=== PATIENT | female | born 1975 | race American Indian/Alaskan Native ===

== ENCOUNTER 2016-08-20 09:55 | Inpatient (IN) | payer OTHER ==
[2016-08-20] MEDS ORDERED: TYLENOL PO ONE (10:16)
--- NOTE | 2016-08-20 10:32 | Emergency Department Report ---
ED General Adult HPI - General Chief complaint: Dyspnea/Respdistress Stated complaint: POSS PNEUMONIA Time Seen by Provider: 08/20/16 10:30 Source: patient, EMS Mode of arrival: Stretcher Limitations: No Limitations - History of Present Illness Initial comments: Patient complains of green productive sputum and shortness of breath for the past several days. She has had fever and chills. She does work in healthcare setting. She denies prior history of pneumonia. She states her sugar has been borderline in the past but she is not on medicine for diabetes. She has been prescribed a C Pap at night which she no longer has. She has not been to a physician for some time. -: days(s) Radiation: non-radiation Severity scale (0 -10): 0 Improves with: none Worsens with: none Associated Symptoms: cough, fever/chills - Related Data Previous Rx's Medication Instructions Recorded Last Taken Type Nitrofurantoin [place]/M-Cryst 100 mg PO Q12HR #14 capsule 01/03/16 Unknown Rx [Macrobid CAP] Ondansetron [Zofran Odt] 4 mg PO Q8H PRN #10 tab.rapdis 01/03/16 Unknown Rx Allergies Allergy/AdvReac Type Severity Reaction Status Date / Time No Known Allergies Allergy Unverified 01/03/16 23:49 ED Review of Systems ROS: Stated complaint: POSS PNEUMONIA Other details as noted in HPI Constitutional: chills, fever Eyes: denies: eye pain, eye discharge, vision change ENT: denies: ear pain, throat pain Respiratory: cough, shortness of breath. denies: wheezing Cardiovascular: denies: chest pain, palpitations Endocrine: no symptoms reported Gastrointestinal: diarrhea (some mild but not watery diarrhea.). denies: abdominal pain, nausea Genitourinary: denies: urgency, dysuria, discharge Musculoskeletal: denies: back pain, joint swelling, arthralgia Skin: denies: rash, lesions Neurological: denies: headache, weakness, paresthesias Psychiatric: denies: anxiety, depression Hematological/Lymphatic: denies: easy bleeding, easy bruising ED Past Medical Hx - Past Medical History Previous Medical History?: Yes Hx Asthma: Yes Additional medical history: pneumonia, sleep apnea - Social History Smoking Status: Never Smoker Substance Use Type: None - Medications Home Medications: Home Medications Medication Instructions Recorded Confirmed Last Taken Type Nitrofurantoin [place]/M-Cryst 100 mg PO Q12HR #14 capsule 01/03/16 Unknown Rx [Macrobid CAP] Ondansetron [Zofran Odt] 4 mg PO Q8H PRN #10 tab.rapdis 01/03/16 Unknown Rx ED Physical Exam - General Limitations: No Limitations General appearance: alert, in no apparent distress, obese - Head Head exam: Present: atraumatic, normocephalic - Eye Eye exam: Present: normal appearance, PERRL, EOMI. Absent: scleral icterus - ENT ENT exam: Present: normal exam, normal orophraynx, mucous membranes moist - Neck Neck exam: Present: normal inspection - Respiratory Respiratory exam: Present: decreased breath sounds, other (no respiratory distress). Absent: respiratory distress, accessory muscle use - Cardiovascular Cardiovascular Exam: Present: normal rhythm, tachycardia. Absent: systolic murmur, diastolic murmur, rubs, gallop - GI/Abdominal GI/Abdominal exam: Present: soft, normal bowel sounds. Absent: distended, tenderness, guarding, rebound, rigid - Extremities Exam Extremities exam: Present: normal inspection - Back Exam Back exam: Present: normal inspection - Neurological Exam Neurological exam: Present: alert, oriented X3, CN II-XII intact. Absent: motor sensory deficit - Psychiatric Psychiatric exam: Present: normal affect, normal mood - Skin Skin exam: Present: warm, dry, intact, normal color. Absent: rash ED Course Vital Signs 08/20/16 08/20/16 08/20/16 10:02 10:06 11:00 Temperature 102.7 F H Pulse Rate 114 H 108 H Respiratory 22 20 Rate Blood Pressure 107/58 107/58 107/58 O2 Sat by Pulse 97 97 Oximetry 08/20/16 08/20/16 08/20/16 12:00 12:33 13:00 Temperature Pulse Rate 116 H 97 H Respiratory 19 22 21 Rate Blood Pressure 96/54 80/42 O2 Sat by Pulse 99 97 98 Oximetry - Reevaluation(s) Reevaluation #1: Patient's first antibiotic choice was Levaquin. Added antibiotic coverage per Dr. Lazcano. Patient was admitted to the hospitalist service. 08/20/16 14:10 ED Medical Decision Making - Lab Data Result diagrams: 08/20/16 11:44 08/20/16 11:44 Laboratory Results - last 24 hr 08/20/16 08/20/16 08/20/16 10:37 10:45 11:44 WBC RBC Hgb Hct MCV MCH MCHC RDW Plt Count Lymph % (Auto) [place] % (Auto) Eos % (Auto) Baso % (Auto) Lymph # [place] # Eos # Baso # Seg Neutrophils % Seg Neutrophils # PT 13.1 INR 1.00 APTT 28.0 POC ABG pH POC ABG pCO2 POC ABG pO2 POC ABG HCO3 POC ABG Total CO2 POC ABG O2 Sat POC ABG Base Excess FiO2 Sodium 139 Potassium 4.5 Chloride 99.8 Carbon Dioxide 27 Anion Gap 17 BUN 21 H Creatinine 1.4 H Estimated GFR 50 BUN/Creatinine Ratio 15.00 Glucose 136 H Lactic Acid 1.70 Calcium 8.8 Magnesium Total Bilirubin Direct Bilirubin AST ALT Alkaline Phosphatase Troponin T < 0.010 Total Protein Albumin Albumin/Globulin Ratio Urine Color Urine Turbidity Urine pH Ur Specific [place] Urine Protein Urine Glucose (UA) Urine Ketones Urine Blood Urine Nitrite Urine Bilirubin Urine Urobilinogen Ur Leukocyte Esterase Urine WBC (Auto) Urine RBC (Auto) U Epithel Cells (Auto) 08/20/16 08/20/16 08/20/16 11:44 11:44 11:44 WBC 12.7 H RBC 4.12 Hgb 11.5 Hct 35.6 MCV 86 MCH 28 MCHC 32 RDW 15.9 H Plt Count 231 Lymph % (Auto) 14.8 [place] % (Auto) 5.4 Eos % (Auto) 0.1 Baso % (Auto) 0.4 Lymph # 1.9 [place] # 0.7 Eos # 0.0 Baso # 0.1 Seg Neutrophils % 79.3 H Seg Neutrophils # 10.0 H PT INR APTT POC ABG pH POC ABG pCO2 POC ABG pO2 POC ABG HCO3 POC ABG Total CO2 POC ABG O2 Sat POC ABG Base Excess FiO2 Sodium Potassium Chloride Carbon Dioxide Anion Gap BUN Creatinine Estimated GFR BUN/Creatinine Ratio Glucose Lactic Acid Calcium Magnesium 2.10 Total Bilirubin 0.20 Direct Bilirubin < 0.2 AST 16 ALT 20 Alkaline Phosphatase 56 Troponin T Total Protein 7.4 Albumin 3.6 L Albumin/Globulin Ratio 0.9 Urine Color Urine Turbidity Urine pH Ur Specific [place] Urine Protein Urine Glucose (UA) Urine Ketones Urine Blood Urine Nitrite Urine Bilirubin Urine Urobilinogen Ur Leukocyte Esterase Urine WBC (Auto) Urine RBC (Auto) U Epithel Cells (Auto) 08/20/16 08/20/16 12:33 13:04 WBC RBC Hgb Hct MCV MCH MCHC RDW Plt Count Lymph % (Auto) [place] % (Auto) Eos % (Auto) Baso % (Auto) Lymph # [place] # Eos # Baso # Seg Neutrophils % Seg Neutrophils # PT INR APTT POC ABG pH 7.421 POC ABG pCO2 37.5 POC ABG pO2 95 POC ABG HCO3 24.3 POC ABG Total CO2 25 POC ABG O2 Sat 98 POC ABG Base Excess 0 FiO2 28 Sodium Potassium Chloride Carbon Dioxide Anion Gap BUN Creatinine Estimated GFR BUN/Creatinine Ratio Glucose Lactic Acid Calcium Magnesium Total Bilirubin Direct Bilirubin AST ALT Alkaline Phosphatase Troponin T Total Protein Albumin Albumin/Globulin Ratio Urine Color Yellow Urine Turbidity Clear Urine pH 5.0 Ur Specific [place] 1.016 Urine Protein <15 mg/dl Urine Glucose (UA) Neg Urine Ketones Neg Urine Blood Mod Urine Nitrite Neg Urine Bilirubin Neg Urine Urobilinogen < 2.0 Ur Leukocyte Esterase Neg Urine WBC (Auto) 2.0 Urine RBC (Auto) 3.0 U Epithel Cells (Auto) < 1.0 - EKG Data -: EKG Interpreted by Me EKG shows normal: sinus rhythm, axis (left) Rate: tachycardia - EKG Data Interpretation: no acute changes - Radiology Data interpreted by me: Left lower lobe pneumonia Critical care attestation.: If time is entered above; I have spent that time in minutes in the direct care of this critically ill patient, excluding procedure time. ED Disposition Clinical Impression: Left lower lobe pneumonia Qualifiers: Pneumonia type: due to unspecified organism Qualified Code(s): J18.1 - Lobar pneumonia, unspecified organism Disposition: OP ADMIT IP TO THIS HOSP Is pt being admited?: Yes Does the pt Need Aspirin: Yes Condition: Stable Time of Disposition: 11:30
[2016-08-20] MEDS ORDERED: NACL 0.9% 1000 ML 1,000 ML IV ONE (10:35)
[2016-08-20] MEDS ORDERED: LEVAQUIN 750MG/150ML 750 MG/150 ML BAG IV ONE (10:36)
--- NOTE | 2016-08-20 11:26 | XRay Report ---
AP CHEST: HISTORY: Shortness of breath AP view of the chest demonstrates a normal mediastinal and cardiac contour with clear lungs and normal bony and soft tissue structures. IMPRESSION: Unremarkable AP chest.
[2016-08-20 12:03] LABS: Basophils % (Auto) 0.4 % (0.0-1.8); Eosinophils % (Auto) 0.1 % (0.0-4.3); Hematocrit 35.6 % (30.3-42.9); Hemoglobin 11.5 gm/dl (10.1-14.3); Mean Corpuscular HGB Conc 32 % (30-34); Mean Corpuscular Hemoglobin 28 pg (28-32); Mean Corpuscular Volume 86 fl (79-97); Platelet Count 231 K/mm3 (140-440); Red Blood Count 4.12 M/mm3 (3.65-5.03); Red Cell Distribution Width 15.9 % (13.2-15.2); White Blood Count 12.7 K/mm3 (4.5-11.0)
[2016-08-20 12:17] LABS: Anion Gap 17 mmol/L; Blood Urea Nitrogen 21 mg/dL (7-17); Calcium 8.8 mg/dL (8.4-10.2); Carbon Dioxide 27 mmol/L (22-30); Chloride 99.8 mmol/L (98-107); Glucose 136 mg/dL (65-100); Potassium 4.5 mmol/L (3.6-5.0); Sodium 139 mmol/L (137-145)
[2016-08-20] MEDS ORDERED: VANCOMYCIN VIAL IV ONE (12:23)
[2016-08-20] MEDS ORDERED: NACL 0.9% 1000 ML IV ONE ×3 (12:23→19:00)
[2016-08-20 12:31] LABS: Alanine Aminotransferase 20 units/L (7-56); Albumin 3.6 g/dL (3.9-5); Albumin/Globulin Ratio 0.9 %; Alkaline Phosphatase 56 units/L (35-129); Total Protein 7.4 g/dL (6.3-8.2)
[2016-08-20 12:33] LABS: Bilirubin,Direct < 0.2 mg/dL (0-0.2)
--- NOTE | 2016-08-20 12:36 | History and Physical Report ---
History of Present Illness Chief complaint: I feel sick, and Im short of breath History of present illness: 41 YO Female with Obesity, GLORIA, Asthma, presents to ED for evaluation. Pt states that she has been experiencing a productive cough productive of green sputum and shortness of breath for the past 5 days, with worsening symptoms over the past 1 day. Pt acknowledges subjective fever and chills. Pt denies CP , Palpitations, NVD, Syncope, BRBPR, Hemoptysis, Unintentional weight loss, Night sweats, Leg swelling, Calf pain, prolonged travel/immobility, individual/ family history of DVT/PE, or recent ill contacts. Past History Past Medical History: other (GLORIA, Asthma, Obesity) Past Surgical History: No surgical history, Other (reviewed) Social history: single. denies: smoking, alcohol abuse, prescription drug abuse Family history: hypertension Medications and Allergies Allergies Allergy/AdvReac Type Severity Reaction Status Date / Time No Known Allergies Allergy Unverified 01/03/16 23:49 Home Medications Medication Instructions Recorded Confirmed Last Taken Type No Known Home Medications [No 08/20/16 08/20/16 Unknown History Reported Home Medications] Active Meds: Active Medications Azithromycin 500 mg/ Sodium (Chloride) 250 mls @ 250 mls/hr IV Q24HR JESSICA PRN Reason: Protocol Ceftriaxone Sodium (Rocephin/Ns 1 Gm/50 Ml) 1 gm in 50 mls @ 100 mls/hr IV Q24HR JESSICA PRN Reason: Protocol Vancomycin HCl (Vancomycin Pharmacy To Dose) 1 each IV PKCONSULT JESSICA PRN Reason: Protocol Vancomycin HCl (Vancomycin Vial) 1,750 mg 20 mg/kg (1750 mg) IV ONCE ONE PRN Reason: Protocol Stop: 08/20/16 12:24 Review of Systems All systems: negative Constitutional: fever, fatigue, weakness Respiratory: cough with sputum Exam - Constitutional Vitals: Temp Pulse Resp BP Pulse Ox 102.7 F H 116 H 22 96/54 97 08/20/16 10:06 08/20/16 12:00 08/20/16 12:33 08/20/16 12:00 08/20/16 12:33 General appearance: Present: mild distress - EENT Eyes: Present: PERRL ENT: hearing intact, clear oral mucosa - Neck Neck: Present: supple, normal ROM - Respiratory Respiratory effort: normal Respiratory: bilateral: diminished - Cardiovascular Heart Sounds: Present: S1 & S2. Absent: rub, click - Extremities Extremities: pulses symmetrical, No edema Peripheral Pulses: within normal limits - Abdominal General gastrointestinal: Present: soft, non-tender, non-distended, normal bowel sounds Female genitourinary: Present: normal - Integumentary Integumentary: Present: clear, warm, dry - Musculoskeletal Musculoskeletal: generalized weakness - Psychiatric Psychiatric: appropriate mood/affect, intact judgment & insight - Neurologic Neurologic: CNII-XII intact, moves all extremities Results - Labs CBC & Chem 7: 08/20/16 11:44 08/20/16 11:44 Labs: Abnormal lab results 08/20/16 08/20/16 08/20/16 Range/Units 11:44 11:44 11:44 WBC 12.7 H (4.5-11.0) K/mm3 RDW 15.9 H (13.2-15.2) % Seg Neutrophils % 79.3 H (40.0-70.0) % Seg Neutrophils # 10.0 H (1.8-7.7) K/mm3 BUN 21 H (7-17) mg/dL Creatinine 1.4 H (0.7-1.2) mg/dL Glucose 136 H (65-100) mg/dL Albumin 3.6 L (3.9-5) g/dL Assessment and Plan - Patient Problems (1) Sepsis Current Visit: Yes Status: Acute Qualifiers: Sepsis type: S Plan to address problem: IV abx, ivf, supportive care, monitor uop q shift, treat pneumonia, serial lactate level, blood cultures, (2) ARF (acute renal failure) Current Visit: Yes Status: Acute Qualifiers: Acute renal failure type: A Plan to address problem: IVF replacement, monitor uop q shift (3) GLORIA (obstructive sleep apnea) Current Visit: Yes Status: Acute Plan to address problem: CPAP at night, (4) Left lower lobe pneumonia Current Visit: Yes Status: Acute Qualifiers: Pneumonia type: due to unspecified organism Aspiration pneumonia type: A Qualified Code(s): J18.1 - Lobar pneumonia, unspecified organism Plan to address problem: Pneumonia protocol: IV abx, ivf supportive care. (5) DVT prophylaxis Current Visit: Yes Status: Acute
--- NOTE | 2016-08-20 12:37 | Admit Criteria Form ---
Admission Criteria Documentation: FEBRILE ILLNESS, WITHOUT FOCAL INFECTION Clinical Indications for Admission to Inpatient Care (Place 'X' for any and all applicable criteria): Admission is indicated for ANY ONE of the following (1)(2)(3): [ ] I. Bacteremia [ ]II. Suspected or identified specific infection requiring hospitalization (eg, meningitis, endocarditis) [ ]III. Hemodynamic instability [ ]IV. Altered mental status [ ]V. Failure or unavailability of outpatient antimicrobial treatment [ ]. Hypoxemia [ ]VII. Seizures [ ]VIII. High-risk febrile neutropenia [ ]IX. Need for parenteral antibiotic in patient who is likely to abuse vascular access device (eg, injection drug user) [A](7) [ ]X. Temperature greater than 104.9 degrees F (40.5 degrees C) (oral) [X ]XI. Inpatient admission required rather than observation care because of ANY ONE of the following: [ X]a) Specific infection identified that is too severe for outpatient treatment or observation care trial [ ]b) Metabolic disorder (eg, hypoglycemia, hyperglycemia, metabolic acidosis) that is severe or persistent [ ]c) Temperature greater than 103.1 degrees F (39.5 degrees C) ( oral) that is not responsive to observation care treatment [ ]d) IV fluid to replace significant ongoing (eg, for over 24 hours) losses (> 3 L/m2 per day) [ ]e) Supplemental oxygen or respiratory treatments for over 24 hours that is performable only in acute inpatient setting [ ]f) Parenteral nutrition regimen need that must be implemented on inpatient basis [ ]g) Strict or protective (eg, laminar flow) isolation [ ]h) Other condition, treatment or monitoring requiring inpatient admission Extended stay beyond goal length of stay may be needed for(1)(3) [ ]a) Sepsis or septic shock(22) [ ]b) Positive blood cultures [ ]c) Insufficient oral intake [ ]d) High-risk febrile neutropenia(29)(30) [ ]e) Continued fever and clinical instability [ ]f) Clinically active comorbid illness (e.g,heart failure, renal failure , diabetes) The original [facility] content created by [facility] has been revised. The portions of the content which have been revised are identified through the use of italic text or in bold, and [facility] [employer] has neither reviewed nor approved the modified material. All other unmodified content is copyright [facility]. Please see references footnoted in the original [facility] edition 2016 Admission Criteria Met: Yes
[2016-08-20] MEDS ORDERED: VANCOMYCIN PHARMACY TO DOSE IV SCH (13:00)
[2016-08-20 13:13] LABS: ISTAT Base Excess 0; ISTAT HCO3 24.3; ISTAT PCO2 37.5 (35-45); ISTAT PH 7.421 (7.35-7.45); ISTAT PO2 95 (80-105); ISTAT SO2 98; ISTAT TCO2 25
[2016-08-20] MEDS: VANCOMYCIN 1,750 MG in NACL 0.9% 500 ML 500 ML IV SCH (13:44)
[2016-08-20 13:56] LABS: Bilirubin,Urine NEG (Negative); Blood,Urine MOD (Negative); Ketones,Urine NEG (Negative); Leukocyte Esterase,Urine NEG (Negative); Nitrite,Urine NEG (Negative); Protein,Urine <15 mg/dL mg/dL (Negative); Urobilinogen,Urine < 2.0 mg/dL (<2.0)
[2016-08-20] MEDS: PERCOCET 5/325 PO PRN (15:00)
[2016-08-20] MEDS ORDERED: PERCOCET 5/325 ONE (15:41)
[2016-08-20] MEDS: ZITHROMAX 500 MG in NACL 0.9% 250ML 250 ML IV SCH (16:00)
[2016-08-20] MEDS: BABY ASPIRIN PO SCH (17:00)
[2016-08-21 05:19] LABS: Basophils % (Auto) 0.2 % (0.0-1.8); Eosinophils % (Auto) 1.1 % (0.0-4.3); Hematocrit 33.3 % (30.3-42.9); Hemoglobin 10.5 gm/dl (10.1-14.3); Mean Corpuscular HGB Conc 31 % (30-34); Mean Corpuscular Hemoglobin 28 pg (28-32); Mean Corpuscular Volume 88 fl (79-97); Platelet Count 212 K/mm3 (140-440); Red Cell Distribution Width 16.2 % (13.2-15.2); White Blood Count 14.1 K/mm3 (4.5-11.0)
[2016-08-21] MEDS: PERCOCET 5/325 PO PRN ×2 (06:26→12:11)
--- NOTE | 2016-08-21 09:31 | Progress Note ---
Hospitalist Physical - Constitutional Vitals: Temp Pulse Resp BP Pulse Ox 99.2 F 84 18 133/79 95 08/21/16 07:00 08/21/16 07:00 08/21/16 07:00 08/21/16 07:00 08/21/16 07:00 General appearance: Present: mild distress Results - Labs CBC & Chem 7: 08/21/16 04:29 08/20/16 11:44 Labs: Laboratory Last Values WBC 14.1 K/mm3 (4.5-11.0) H 08/21/16 04:29 RBC 3.80 M/mm3 (3.65-5.03) 08/21/16 04:29 Hgb 10.5 gm/dl (10.1-14.3) 08/21/16 04:29 Hct 33.3 % (30.3-42.9) 08/21/16 04:29 MCV 88 fl (79-97) 08/21/16 04:29 MCH 28 pg (28-32) 08/21/16 04:29 MCHC 31 % (30-34) 08/21/16 04:29 RDW 16.2 % (13.2-15.2) H 08/21/16 04:29 Plt Count 212 K/mm3 (140-440) 08/21/16 04:29 Lymph % (Auto) 17.5 % (13.4-35.0) 08/21/16 04:29 [place] % (Auto) 7.1 % (0.0-7.3) 08/21/16 04:29 Eos % (Auto) 1.1 % (0.0-4.3) 08/21/16 04:29 Baso % (Auto) 0.2 % (0.0-1.8) 08/21/16 04:29 Lymph # 2.5 K/mm3 (1.2-5.4) 08/21/16 04:29 [place] # 1.0 K/mm3 (0.0-0.8) H 08/21/16 04:29 Eos # 0.2 K/mm3 (0.0-0.4) 08/21/16 04:29 Baso # 0.0 K/mm3 (0.0-0.1) 08/21/16 04:29 Seg Neutrophils % 74.1 % (40.0-70.0) H 08/21/16 04:29 Seg Neutrophils # 10.5 K/mm3 (1.8-7.7) H 08/21/16 04:29 PT 13.1 Sec. (12.2-14.9) 08/20/16 10:37 INR 1.00 (0.87-1.13) 08/20/16 10:37 APTT 28.0 Sec. (24.2-36.6) 08/20/16 10:37 POC ABG pH 7.421 (7.35-7.45) 08/20/16 13:04 POC ABG pCO2 37.5 (35-45) 08/20/16 13:04 POC ABG pO2 95 (80-105) 08/20/16 13:04 POC ABG HCO3 24.3 08/20/16 13:04 POC ABG Total CO2 25 08/20/16 13:04 POC ABG O2 Sat 98 08/20/16 13:04 POC ABG Base Excess 0 08/20/16 13:04 FiO2 28 % 08/20/16 13:04 Sodium 139 mmol/L (137-145) 08/20/16 11:44 Potassium 4.5 mmol/L (3.6-5.0) 08/20/16 11:44 Chloride 99.8 mmol/L (98-107) 08/20/16 11:44 Carbon Dioxide 27 mmol/L (22-30) 08/20/16 11:44 Anion Gap 17 mmol/L 08/20/16 11:44 BUN 21 mg/dL (7-17) H 08/20/16 11:44 Creatinine 1.4 mg/dL (0.7-1.2) H 08/20/16 11:44 Estimated GFR 50 ml/min 08/20/16 11:44 BUN/Creatinine Ratio 15.00 % 08/20/16 11:44 Glucose 136 mg/dL (65-100) H 08/20/16 11:44 Lactic Acid 1.70 mmol/L (0.7-2.0) 08/20/16 10:45 Calcium 8.8 mg/dL (8.4-10.2) 08/20/16 11:44 Magnesium 2.10 mg/dL (1.7-2.3) 08/20/16 11:44 Total Bilirubin 0.20 mg/dL (0.1-1.2) 08/20/16 11:44 Direct Bilirubin < 0.2 mg/dL (0-0.2) 08/20/16 11:44 AST 16 units/L (5-40) 08/20/16 11:44 ALT 20 units/L (7-56) 08/20/16 11:44 Alkaline Phosphatase 56 units/L (35-129) 08/20/16 11:44 Troponin T < 0.010 ng/mL (0.00-0.029) 08/20/16 11:44 Total Protein 7.4 g/dL (6.3-8.2) 08/20/16 11:44 Albumin 3.6 g/dL (3.9-5) L 08/20/16 11:44 Albumin/Globulin Ratio 0.9 % 08/20/16 11:44 Urine Color Yellow (Yellow) 08/20/16 12:33 Urine Turbidity Clear (Clear) 08/20/16 12:33 Urine pH 5.0 (5.0-7.0) 08/20/16 12:33 Ur Specific [place] 1.016 (1.003-1.030) 08/20/16 12:33 Urine Protein <15 mg/dl mg/dL (Negative) 08/20/16 12:33 Urine Glucose (UA) Neg mg/dL (Negative) 08/20/16 12:33 Urine Ketones Neg mg/dL (Negative) 08/20/16 12:33 Urine Blood Mod (Negative) 08/20/16 12:33 Urine Nitrite Neg (Negative) 08/20/16 12:33 Urine Bilirubin Neg (Negative) 08/20/16 12:33 Urine Urobilinogen < 2.0 mg/dL (<2.0) 08/20/16 12:33 Ur Leukocyte Esterase Neg (Negative) 08/20/16 12:33 Urine WBC (Auto) 2.0 /HPF (0.0-6.0) 08/20/16 12:33 Urine RBC (Auto) 3.0 /HPF (0.0-6.0) 08/20/16 12:33 U Epithel Cells (Auto) < 1.0 /HPF (0-13.0) 08/20/16 12:33 Blood Type AB POSITIVE 08/20/16 16:18 Antibody Screen TNR 08/20/16 16:18 BAKARI Antibody Screen Negative 08/20/16 16:18
[2016-08-21] MEDS: ROCEPHIN/NS 1 GM/50 ML 1 GM/50 ML BAG IV SCH (09:55)
[2016-08-21] MEDS: BABY ASPIRIN PO SCH (09:55)
[2016-08-21] MEDS: VANCOMYCIN 1,750 MG in NACL 0.9% 500 ML 500 ML IV SCH (14:00)
[2016-08-21] MEDS: ZITHROMAX 500 MG in NACL 0.9% 250ML 250 ML IV SCH (14:40)
[2016-08-21] MEDS: TYLENOL PO PRN (22:01)
[2016-08-21] MEDS ORDERED: NACL ONE (22:28)
--- NOTE | 2016-08-21 23:11 | Cat Scan Report ---
FINAL REPORT PROCEDURE: CT CHEST WO CON TECHNIQUE: Computerized axial tomography of the chest was performed without contrast material. This study is performed without intravenous contrast and the sensitivity for pathology, including neoplasms, adenopathy, abscess, pulmonary embolism and aortic dissection, is reduced. HISTORY: bloody sputum COMPARISON: No prior studies are available for comparison. TECHNICAL QUALITY: Satisfactory. FINDINGS: There are bilateral alveolar and ground-glass opacities in a perihilar distribution. Lung apices appear to be spared. No pleural effusion or pneumothorax is seen. The heart is normal in size. Thoracic aorta is normal in size. Small likely reactive mediastinal lymph nodes are seen. There is 1.2 cm cyst or nodule in the left lobe of the thyroid gland. Correlation with thyroid ultrasound is recommended. IMPRESSION: Perihilar infiltrates are seen and are suspicious for atypical pneumonia. 1.2 cm cyst or nodule in the left lobe of the thyroid gland should be evaluated with ultrasound.
[2016-08-22 07:36] LABS: Hematocrit 33.8 % (30.3-42.9); Hemoglobin 10.8 gm/dl (10.1-14.3)
[2016-08-22] MEDS: ROCEPHIN/NS 1 GM/50 ML 1 GM/50 ML BAG IV SCH (10:00)
[2016-08-22] MEDS: BABY ASPIRIN PO SCH (10:05)
--- NOTE | 2016-08-22 10:26 | Progress Note ---
Assessment and Plan Assessment and plan: --Bilateral atypical pneumonia with hemoptysis Follow cultures, continue IV antibiotics, oxygen, nebulizers as needed Patient had CT chest without contrast ,Pulmonary consultation --Acute renal failure; secondary to vasomotor nephropathy Resolved, closely monitor renal function --Sepsis secondary to pneumonia Continue IV antibiotics and follow cultures --Leukocytosis; secondary to pneumonia Trending down --Mild elevation of d-dimer's, in the setting of shortness of breath blood stained sputum Need to rule out PE, CT chest with contrast ,we'll check lower extremity venous Doppler, BNP and possible echocardiogram to rule out congestive heart failure --Morbid obesity; Counseling done, diet modification exercise as tolerated and weight reduction when medically stable, patient may benefit outpatient evaluation by bariatric surgical team for weight reduction program when medically stable --Possible obstructive sleep apnea; CPAP at night May need outpatient sleep studies --DVT prophylaxis with Lovenox Closely monitor the patient and adjust the management as needed History Interval history: Patient Seen and evaluated this morning medical records reviewed Patient complaints cough with bloody sputum Spiked fever of 102 this morning Alert awake oriented 3 not in acute distress Hospitalist Physical - Constitutional Vitals: Temp Pulse Resp BP Pulse Ox 98.8 F 86 22 110/60 100 08/22/16 10:13 08/22/16 10:13 08/22/16 10:13 08/22/16 10:13 08/22/16 10:13 General appearance: Present: no acute distress, well-nourished, obese (morbidly obese) - EENT Eyes: Present: PERRL, EOM intact - Neck Neck: Present: supple, normal ROM - Respiratory Respiratory effort: normal Respiratory: bilateral: diminished, rhonchi (occasional bilateral rhonchi), negative: rales, wheezing - Cardiovascular Rhythm: regular Heart Sounds: Present: S1 & S2 - Extremities Extremities: no ischemia, pulses intact, pulses symmetrical - Abdominal General gastrointestinal: soft, non-tender, non-distended, normal bowel sounds - Integumentary Integumentary: Present: clear, warm - Psychiatric Psychiatric: appropriate mood/affect, cooperative - Neurologic Neurologic: CNII-XII intact, moves all extremities Results - Labs CBC & Chem 7: 08/22/16 14:12 08/22/16 12:57 Labs: Laboratory Last Values WBC 14.1 K/mm3 (4.5-11.0) H 08/21/16 04:29 RBC 3.80 M/mm3 (3.65-5.03) 08/21/16 04:29 Hgb 10.8 gm/dl (10.1-14.3) 08/22/16 07:24 Hct 33.8 % (30.3-42.9) 08/22/16 07:24 MCV 88 fl (79-97) 08/21/16 04:29 MCH 28 pg (28-32) 08/21/16 04:29 MCHC 31 % (30-34) 08/21/16 04:29 RDW 16.2 % (13.2-15.2) H 08/21/16 04:29 Plt Count 212 K/mm3 (140-440) 08/21/16 04:29 Lymph % (Auto) 17.5 % (13.4-35.0) 08/21/16 04:29 Long % (Auto) 7.1 % (0.0-7.3) 08/21/16 04:29 Eos % (Auto) 1.1 % (0.0-4.3) 08/21/16 04:29 Baso % (Auto) 0.2 % (0.0-1.8) 08/21/16 04:29 Lymph # 2.5 K/mm3 (1.2-5.4) 08/21/16 04:29 Long # 1.0 K/mm3 (0.0-0.8) H 08/21/16 04:29 Eos # 0.2 K/mm3 (0.0-0.4) 08/21/16 04:29 Baso # 0.0 K/mm3 (0.0-0.1) 08/21/16 04:29 Seg Neutrophils % 74.1 % (40.0-70.0) H 08/21/16 04:29 Seg Neutrophils # 10.5 K/mm3 (1.8-7.7) H 08/21/16 04:29 PT 13.1 Sec. (12.2-14.9) 08/20/16 10:37 INR 1.00 (0.87-1.13) 08/20/16 10:37 APTT 28.0 Sec. (24.2-36.6) 08/20/16 10:37 POC ABG pH 7.421 (7.35-7.45) 08/20/16 13:04 POC ABG pCO2 37.5 (35-45) 08/20/16 13:04 POC ABG pO2 95 (80-105) 08/20/16 13:04 POC ABG HCO3 24.3 08/20/16 13:04 POC ABG Total CO2 25 08/20/16 13:04 POC ABG O2 Sat 98 08/20/16 13:04 POC ABG Base Excess 0 08/20/16 13:04 FiO2 28 % 08/20/16 13:04 Sodium 139 mmol/L (137-145) 08/20/16 11:44 Potassium 4.5 mmol/L (3.6-5.0) 08/20/16 11:44 Chloride 99.8 mmol/L (98-107) 08/20/16 11:44 Carbon Dioxide 27 mmol/L (22-30) 08/20/16 11:44 Anion Gap 17 mmol/L 08/20/16 11:44 BUN 21 mg/dL (7-17) H 08/20/16 11:44 Creatinine 1.4 mg/dL (0.7-1.2) H 08/20/16 11:44 Estimated GFR 50 ml/min 08/20/16 11:44 BUN/Creatinine Ratio 15.00 % 08/20/16 11:44 Glucose 136 mg/dL (65-100) H 08/20/16 11:44 Lactic Acid 1.70 mmol/L (0.7-2.0) 08/20/16 10:45 Calcium 8.8 mg/dL (8.4-10.2) 08/20/16 11:44 Magnesium 2.10 mg/dL (1.7-2.3) 08/20/16 11:44 Total Bilirubin 0.20 mg/dL (0.1-1.2) 08/20/16 11:44 Direct Bilirubin < 0.2 mg/dL (0-0.2) 08/20/16 11:44 AST 16 units/L (5-40) 08/20/16 11:44 ALT 20 units/L (7-56) 08/20/16 11:44 Alkaline Phosphatase 56 units/L (35-129) 08/20/16 11:44 Troponin T < 0.010 ng/mL (0.00-0.029) 08/20/16 11:44 Total Protein 7.4 g/dL (6.3-8.2) 08/20/16 11:44 Albumin 3.6 g/dL (3.9-5) L 08/20/16 11:44 Albumin/Globulin Ratio 0.9 % 08/20/16 11:44 Urine Color Yellow (Yellow) 08/20/16 12:33 Urine Turbidity Clear (Clear) 08/20/16 12:33 Urine pH 5.0 (5.0-7.0) 08/20/16 12:33 Ur Specific [place] 1.016 (1.003-1.030) 08/20/16 12:33 Urine Protein <15 mg/dl mg/dL (Negative) 08/20/16 12:33 Urine Glucose (UA) Neg mg/dL (Negative) 08/20/16 12:33 Urine Ketones Neg mg/dL (Negative) 08/20/16 12:33 Urine Blood Mod (Negative) 08/20/16 12:33 Urine Nitrite Neg (Negative) 08/20/16 12:33 Urine Bilirubin Neg (Negative) 08/20/16 12:33 Urine Urobilinogen < 2.0 mg/dL (<2.0) 08/20/16 12:33 Ur Leukocyte Esterase Neg (Negative) 08/20/16 12:33 Urine WBC (Auto) 2.0 /HPF (0.0-6.0) 08/20/16 12:33 Urine RBC (Auto) 3.0 /HPF (0.0-6.0) 08/20/16 12:33 U Epithel Cells (Auto) < 1.0 /HPF (0-13.0) 08/20/16 12:33 Blood Type AB POSITIVE 08/20/16 16:18 Antibody Screen TNR 08/20/16 16:18 BAKARI Antibody Screen Negative 08/20/16 16:18
[2016-08-22] MEDS: VANCOMYCIN 1,750 MG in NACL 0.9% 500 ML 500 ML IV SCH (13:19)
[2016-08-22 13:41] LABS: Anion Gap 12 mmol/L; Blood Urea Nitrogen 9 mg/dL (7-17); Calcium 8.9 mg/dL (8.4-10.2); Carbon Dioxide 31 mmol/L (22-30); Chloride 92.1 mmol/L (98-107); Glucose 158 mg/dL (65-100); Potassium 3.7 mmol/L (3.6-5.0); Sodium 131 mmol/L (137-145)
[2016-08-22] MEDS: ZITHROMAX 500 MG in NACL 0.9% 250ML 250 ML IV SCH (14:00)
[2016-08-22] MEDS ORDERED: LASIX IV ONE ×2 (14:17→18:00)
[2016-08-22 14:40] LABS: Hemoglobin 10.4 gm/dl (10.1-14.3)
[2016-08-22] MEDS ORDERED: LOVENOX SUB-Q ONE (15:45)
--- NOTE | 2016-08-22 16:29 | Event Note ---
Date: 08/22/16 Patient in shower. Ordered Stat BNP, Coags and dopplers are pending. Will follow up for full consul.
[2016-08-22 17:28] LABS: INR 0.93 (0.87-1.13)
[2016-08-22 17:29] LABS: Partial Thromboplastin Time 30.3 Sec. (24.2-36.6)
[2016-08-22] MEDS: PERCOCET 5/325 PO PRN (17:44)
[2016-08-22] MEDS ORDERED: NACL ONE (19:31)
--- NOTE | 2016-08-22 22:57 | Cat Scan Report ---
FINAL REPORT PROCEDURE: CT ANGIO CHEST TECHNIQUE: Computerized tomographic angiography of the chest was performed after the IV injection of iodinated nonionic contrast including image processing. The image data was postprocessed using 2-dimensional multiplanar reformatted (MPR) and 3-dimensional (MIP and/or volume rendered) techniques. HISTORY: hemoptysis/elevated d dimers COMPARISON: Chest CT dated August 21, 2016 FINDINGS: Persistent ground-glass and alveolar perihilar densities are seen with mild improvement since prior exam. Findings suggest atypical pneumonia. No pneumothorax or pleural effusion is seen. Heart and thoracic aorta are normal in size. There is no evidence of aortic dissection. Small likely reactive mediastinal lymph nodes are seen. 1.5 cm left adrenal nodule or cyst should be evaluated with ultrasound. Unfortunately, timing of contrast bolus in the pulmonary arteries is suboptimal. Distal pulmonary artery branches are not well evaluated. No large proximal pulmonary embolus is seen. IMPRESSION: There are improving perihilar infiltrates likely due to atypical pneumonia. Exam is very limited for evaluation for pulmonary emboli due to timing of contrast bolus being suboptimal in the pulmonary arteries. No large proximal pulmonary embolus is identified.
[2016-08-22] MEDS: LOVENOX SUB-Q SCH (23:08)
[2016-08-22 23:12] LABS: Hematocrit 34.6 % (30.3-42.9)
[2016-08-23 07:19] LABS: Hematocrit 35.2 % (30.3-42.9); Hemoglobin 11.4 gm/dl (10.1-14.3)
--- NOTE | 2016-08-23 09:13 | Progress Note ---
Assessment and Plan Assessment and plan: --Bilateral atypical pneumonia with hemoptysis Symptoms significantly improved , cultures negative to date, continue IV antibiotics, oxygen, nebulizers as needed Oxygen titrate O2 sats to more than 90% ,Pulmonary evaluation noted and appreciated --Acute renal failure; secondary to vasomotor nephropathy, resolved --Sepsis secondary to pneumonia ,Continue IV antibiotics negative cultures so far --Leukocytosis; secondary to pneumonia,Trending down --Mild elevation of d-dimer's, CT chest negative for PE, lower extremity venous Doppler negative for DVT --Morbid obesity;, Counseling done, diet modification exercise as tolerated and weight reduction when medically stable, patient may benefit outpatient evaluation by bariatric surgical team for weight reduction program when medically stable --Possible obstructive sleep apnea; CPAP at night, May need outpatient sleep studies --DVT prophylaxis with Lovenox Possible discharge in 1-2 days if stable, Consults and recommendations noted Plan of care discussed with the patient, sister at the bedside and her nurse History Interval history: Sincerely and evaluated this morning medical records reviewed No new events reported by nursing staff, patient seems slightly better, denies hemoptysis/blood-tinged sputum Complaints of mild shortness of breath CT angiogram, negative for PE, mild improvement in infiltrates Hospitalist Physical - Constitutional Vitals: Temp Pulse Resp BP Pulse Ox 98.1 F 91 H 22 116/76 99 08/23/16 08:00 08/23/16 08:00 08/23/16 08:00 08/23/16 08:00 08/23/16 08:58 General appearance: Present: no acute distress, well-nourished, obese (morbidly obese) - EENT Eyes: Present: PERRL, EOM intact - Neck Neck: Present: supple, normal ROM - Respiratory Respiratory effort: normal Respiratory: bilateral: diminished, rhonchi (occasional), negative: rales, wheezing - Cardiovascular Rhythm: regular Heart Sounds: Present: S1 & S2 - Extremities Extremities: no ischemia, pulses intact, No edema - Abdominal General gastrointestinal: soft, non-tender, non-distended, normal bowel sounds - Integumentary Integumentary: Present: clear, warm - Psychiatric Psychiatric: appropriate mood/affect, cooperative - Neurologic Neurologic: CNII-XII intact, moves all extremities Results - Labs CBC & Chem 7: 08/23/16 06:58 08/22/16 12:57 Labs: Laboratory Last Values WBC 14.1 K/mm3 (4.5-11.0) H 08/21/16 04:29 RBC 3.80 M/mm3 (3.65-5.03) 08/21/16 04:29 Hgb 11.4 gm/dl (10.1-14.3) 08/23/16 06:58 Hct 35.2 % (30.3-42.9) 08/23/16 06:58 MCV 88 fl (79-97) 08/21/16 04:29 MCH 28 pg (28-32) 08/21/16 04:29 MCHC 31 % (30-34) 08/21/16 04:29 RDW 16.2 % (13.2-15.2) H 08/21/16 04:29 Plt Count 212 K/mm3 (140-440) 08/21/16 04:29 Lymph % (Auto) 17.5 % (13.4-35.0) 08/21/16 04:29 [place] % (Auto) 7.1 % (0.0-7.3) 08/21/16 04:29 Eos % (Auto) 1.1 % (0.0-4.3) 08/21/16 04:29 Baso % (Auto) 0.2 % (0.0-1.8) 08/21/16 04:29 Lymph # 2.5 K/mm3 (1.2-5.4) 08/21/16 04:29 [place] # 1.0 K/mm3 (0.0-0.8) H 08/21/16 04:29 Eos # 0.2 K/mm3 (0.0-0.4) 08/21/16 04:29 Baso # 0.0 K/mm3 (0.0-0.1) 08/21/16 04:29 Seg Neutrophils % 74.1 % (40.0-70.0) H 08/21/16 04:29 Seg Neutrophils # 10.5 K/mm3 (1.8-7.7) H 08/21/16 04:29 PT 12.9 Sec. (12.2-14.9) 08/22/16 16:43 INR 0.93 (0.87-1.13) 08/22/16 16:43 APTT 30.3 Sec. (24.2-36.6) 08/22/16 16:43 D-Dimer 329.71 ng/mlDDU (0-234) H 08/22/16 12:57 POC ABG pH 7.421 (7.35-7.45) 08/20/16 13:04 POC ABG pCO2 37.5 (35-45) 08/20/16 13:04 POC ABG pO2 95 (80-105) 08/20/16 13:04 POC ABG HCO3 24.3 08/20/16 13:04 POC ABG Total CO2 25 08/20/16 13:04 POC ABG O2 Sat 98 08/20/16 13:04 POC ABG Base Excess 0 08/20/16 13:04 FiO2 28 % 08/20/16 13:04 Sodium 131 mmol/L (137-145) L D 08/22/16 12:57 Potassium 3.7 mmol/L (3.6-5.0) 08/22/16 12:57 Chloride 92.1 mmol/L (98-107) L 08/22/16 12:57 Carbon Dioxide 31 mmol/L (22-30) H 08/22/16 12:57 Anion Gap 12 mmol/L 08/22/16 12:57 BUN 9 mg/dL (7-17) 08/22/16 12:57 Creatinine 0.9 mg/dL (0.7-1.2) 08/22/16 12:57 Estimated GFR > 60 ml/min 08/22/16 12:57 BUN/Creatinine Ratio 10.00 % 08/22/16 12:57 Glucose 158 mg/dL (65-100) H 08/22/16 12:57 Lactic Acid 1.70 mmol/L (0.7-2.0) 08/20/16 10:45 Calcium 8.9 mg/dL (8.4-10.2) 08/22/16 12:57 Magnesium 2.10 mg/dL (1.7-2.3) 08/20/16 11:44 Total Bilirubin 0.20 mg/dL (0.1-1.2) 08/20/16 11:44 Direct Bilirubin < 0.2 mg/dL (0-0.2) 08/20/16 11:44 AST 16 units/L (5-40) 08/20/16 11:44 ALT 20 units/L (7-56) 08/20/16 11:44 Alkaline Phosphatase 56 units/L (35-129) 08/20/16 11:44 Troponin T < 0.010 ng/mL (0.00-0.029) 08/20/16 11:44 NT-Pro-B Natriuret Pep 93.27 pg/mL (0-450) 08/22/16 16:43 Total Protein 7.4 g/dL (6.3-8.2) 08/20/16 11:44 Albumin 3.6 g/dL (3.9-5) L 08/20/16 11:44 Albumin/Globulin Ratio 0.9 % 08/20/16 11:44 Urine Color Yellow (Yellow) 08/20/16 12:33 Urine Turbidity Clear (Clear) 08/20/16 12:33 Urine pH 5.0 (5.0-7.0) 08/20/16 12:33 Ur Specific [place] 1.016 (1.003-1.030) 08/20/16 12:33 Urine Protein <15 mg/dl mg/dL (Negative) 08/20/16 12:33 Urine Glucose (UA) Neg mg/dL (Negative) 08/20/16 12:33 Urine Ketones Neg mg/dL (Negative) 08/20/16 12:33 Urine Blood Mod (Negative) 08/20/16 12:33 Urine Nitrite Neg (Negative) 08/20/16 12:33 Urine Bilirubin Neg (Negative) 08/20/16 12:33 Urine Urobilinogen < 2.0 mg/dL (<2.0) 08/20/16 12:33 Ur Leukocyte Esterase Neg (Negative) 08/20/16 12:33 Urine WBC (Auto) 2.0 /HPF (0.0-6.0) 08/20/16 12:33 Urine RBC (Auto) 3.0 /HPF (0.0-6.0) 08/20/16 12:33 U Epithel Cells (Auto) < 1.0 /HPF (0-13.0) 08/20/16 12:33 Blood Type AB POSITIVE 08/20/16 16:18 Antibody Screen TNR 08/20/16 16:18 BAKARI Antibody Screen Negative 08/20/16 16:18
[2016-08-23] MEDS ORDERED: VANCOMYCIN 1,500 MG in NACL 0.9% 500 ML 500 ML IV SCH (10:00)
[2016-08-23] MEDS: BABY ASPIRIN PO SCH (11:49)
[2016-08-23] MEDS: ROCEPHIN/NS 1 GM/50 ML 1 GM/50 ML BAG IV SCH (11:50)
--- NOTE | 2016-08-23 13:55 | Consultation ---
History of Present Illness Consult date: 08/23/16 Requesting physician: XIOMARA BARCENAS Reason for consult: dyspnea, other (hemoptysis) History of present illness: 41 y/o morbidly obese, jain female admitted with dyspnea and cough. Prior to arrival to hospital, cough was productive of brown sputum and she was winded. Admitted and started on abx therapy. Since then has felt better but started noticing blood tinged sputum on yesterday. Came to see patient but she was in the shower. This am she is still coughing up blood tinged sputum but she feels it is better. I spoke with IMS yesterday. Dopplers done this am were negative. BNP was normal. CT scan was done 2 days ago without contrast and IMS ordered another with contrast. Poor study but no evidence of clot and improvement in alveolar infiltrates. Remainder is positive for patient working in retirement and has complaints of pleuritic chest pain. Past History Past Medical History: other (GLORIA, Asthma, Obesity) Past Surgical History: No surgical history, Other (reviewed) Social history: single. denies: smoking, alcohol abuse, prescription drug abuse Family history: hypertension Medications and Allergies Allergies Allergy/AdvReac Type Severity Reaction Status Date / Time No Known Allergies Allergy Unverified 01/03/16 23:49 Home Medications Medication Instructions Recorded Confirmed Last Taken Type No Known Home Medications [No 08/20/16 08/20/16 Unknown History Reported Home Medications] Active Meds: Active Medications Acetaminophen (Tylenol) 650 mg PO Q4H PRN PRN Reason: temp greater than/ = to 101 Last Admin: 08/21/16 22:01 Dose: 650 mg Aspirin (Baby Aspirin) 162 mg PO QDAY [facility] Last Admin: 08/23/16 11:49 Dose: 162 mg Enoxaparin Sodium (Lovenox) 40 mg SUB-Q QDAY@2200 [facility] Last Admin: 08/22/16 23:08 Dose: 40 mg Azithromycin 500 mg/ Sodium (Chloride) 250 mls @ 250 mls/hr IV Q24H JESSICA PRN Reason: Protocol Last Admin: 08/22/16 14:00 Dose: Not Given Ceftriaxone Sodium (Rocephin/Ns 1 Gm/50 Ml) 1 gm in 50 mls @ 100 mls/hr IV Q24HR JESSICA PRN Reason: Protocol Last Admin: 08/23/16 11:50 Dose: 100 mls/hr Oxycodone/Acetaminophen (Percocet 5/325) 1 tab PO Q6H PRN PRN Reason: Pain, Moderate (4-6) Last Admin: 08/22/16 17:44 Dose: 1 tab Review of Systems All systems: negative Physical Examination Vital signs: Vital Signs BP 107/58 08/20/16 10:02 General appearance: no acute distress, alert, other (morbidly obese) Eyes: non-icteric ENT: oropharynx dry Neck: supple, no lymphadenopathy Effort: normal Ascultation: Bilateral: clear, diminished breath sounds Percussion: Bilateral: not dull Tactile fremitus: Bilateral: normal Cardiovascular: regular rate and rhythm Gastrointestinal: normoactive bowel sounds Integumentary: normal Extremities: no edema, pink and warm, pulses normal Musculoskeletal: no deformities Gait: normal gait normal mental status, non-focal exam other (flat affect) Results - Laboratory Findings CBC and BMP: 08/23/16 06:58 08/22/16 12:57 ABG POC ABG pH 7.421 (7.35-7.45) 08/20/16 13:04 POC ABG pCO2 37.5 (35-45) 08/20/16 13:04 POC ABG pO2 95 (80-105) 08/20/16 13:04 POC ABG HCO3 24.3 08/20/16 13:04 POC ABG Total CO2 25 08/20/16 13:04 POC ABG O2 Sat 98 08/20/16 13:04 PT/INR, D-dimer PT 12.9 Sec. (12.2-14.9) 08/22/16 16:43 INR 0.93 (0.87-1.13) 08/22/16 16:43 D-Dimer 329.71 ng/mlDDU (0-234) H 08/22/16 12:57 Abnormal lab findings: Abnormal Labs 08/21/16 08/22/16 08/22/16 04:29 12:57 12:57 WBC 14.1 H RDW 16.2 H [place] # 1.0 H Seg Neutrophils % 74.1 H Seg Neutrophils # 10.5 H D-Dimer 329.71 H Sodium 131 L D Chloride 92.1 L Carbon Dioxide 31 H Glucose 158 H - Diagnostic Findings CT scan - chest: image reviewed (Reviewed first CT, shows perihilar filling could be edema vs blood vs puss. Reviewed CTA done one day later, improved perihilar infiltrates) Assessment and Plan 41 y/o female, obese admitted with pneumonia, now with hemoptysis (blood tinged sputum), most likely secondary to improved pneumonia. 1. Continue current IV abx therapy. 2. Will add IV steroids to help with pleurisy 3. Wean FiO2 for sats >88% 4. Will continue to follow.
[2016-08-23] MEDS: ZITHROMAX 500 MG in NACL 0.9% 250ML 250 ML IV SCH (14:35)
[2016-08-23] MEDS: PERCOCET 5/325 PO PRN (20:36)
[2016-08-23] MEDS: LOVENOX SUB-Q SCH (21:28)
[2016-08-24 05:22] LABS: Basophils % (Auto) 0.6 % (0.0-1.8); Eosinophils % (Auto) 2.5 % (0.0-4.3); Hematocrit 35.8 % (30.3-42.9); Hemoglobin 11.5 gm/dl (10.1-14.3); Mean Corpuscular HGB Conc 32 % (30-34); Mean Corpuscular Hemoglobin 28 pg (28-32); Mean Corpuscular Volume 86 fl (79-97); Platelet Count 301 K/mm3 (140-440); Red Blood Count 4.15 M/mm3 (3.65-5.03); Red Cell Distribution Width 15.9 % (13.2-15.2); White Blood Count 6.8 K/mm3 (4.5-11.0)
[2016-08-24 05:35] LABS: Anion Gap 17 mmol/L; Blood Urea Nitrogen 13 mg/dL (7-17); Carbon Dioxide 30 mmol/L (22-30); Chloride 94.9 mmol/L (98-107); Glucose 119 mg/dL (65-100); Potassium 4.6 mmol/L (3.6-5.0); Sodium 137 mmol/L (137-145)
[2016-08-24] MEDS: BABY ASPIRIN PO SCH (10:09)
[2016-08-24] MEDS: ROCEPHIN/NS 1 GM/50 ML 1 GM/50 ML BAG IV SCH (10:09)
[2016-08-24] MEDS: TYLENOL PO PRN (10:10)
--- NOTE | 2016-08-24 11:30 | Progress Note ---
Assessment and Plan 41 y/o female, obese admitted with pneumonia, now with hemoptysis (blood tinged sputum), most likely secondary to improved pneumonia. 1. Continue current IV abx therapy. 2. Will add IV steroids to help with pleurisy. DId this today. Please consider decreasing asa to 81 mg daily unless there is a special need for the double dose 3. Wean FiO2 for sats >88%, now on room air 4. Will continue to follow. Subjective Date of service: 08/24/16 Interval history: No acute events last night. Currently complains of being hot. Has some mild chest pain. Did have an episode of hemoptysis prior to my arrival but first time since yesterday morning. No family at bedside. Objective Vital Signs - 12hr 08/24/16 09:07 O2 Sat by Pulse 99 Oximetry Constitutional: no acute distress, alert, other (morbidly obese) Eyes: non-icteric ENT: oropharynx dry Neck: supple, no lymphadenopathy Effort: normal Ascultation: Bilateral: clear, diminished breath sounds Percussion: Bilateral: not dull Tactile fremitus: Bilateral: normal Cardiovascular: regular rate and rhythm Gastrointestinal: normoactive bowel sounds Integumentary: normal Extremities: no edema, pink and warm, pulses normal Neurologic: normal mental status, non-focal exam Psychiatric: other (flat affect) CBC and BMP: 08/24/16 04:58 08/24/16 04:58 ABG, PT/INR, D-dimer: ABG POC ABG pH 7.421 (7.35-7.45) 08/20/16 13:04 POC ABG pCO2 37.5 (35-45) 08/20/16 13:04 POC ABG pO2 95 (80-105) 08/20/16 13:04 POC ABG HCO3 24.3 08/20/16 13:04 POC ABG Total CO2 25 08/20/16 13:04 POC ABG O2 Sat 98 08/20/16 13:04 PT/INR, D-dimer PT 12.9 Sec. (12.2-14.9) 08/22/16 16:43 INR 0.93 (0.87-1.13) 08/22/16 16:43 D-Dimer 329.71 ng/mlDDU (0-234) H 08/22/16 12:57 Abnormal lab findings: Abnormal Labs 08/21/16 08/22/16 08/22/16 04:29 12:57 12:57 WBC 14.1 H RDW 16.2 H [place] % (Auto) [place] # 1.0 H Seg Neutrophils % 74.1 H Seg Neutrophils # 10.5 H D-Dimer 329.71 H Sodium 131 L D Chloride 92.1 L Carbon Dioxide 31 H Glucose 158 H 08/24/16 08/24/16 04:58 04:58 WBC RDW 15.9 H [place] % (Auto) 7.5 H [place] # Seg Neutrophils % Seg Neutrophils # D-Dimer Sodium Chloride 94.9 L Carbon Dioxide Glucose 119 H
--- NOTE | 2016-08-24 11:33 | Progress Note ---
Assessment and Plan Assessment and plan: --Bilateral atypical pneumonia with hemoptysis Symptoms significantly improved , cultures negative to date, continue IV antibiotics, oxygen, nebulizers as needed Tapering dose of prednisone for pleuritic chest pain ,Oxygen titrate O2 sats to more than 90% ,Pulmonary following, --Acute renal failure; secondary to vasomotor nephropathy, resolved --Sepsis secondary to pneumonia ,Continue IV antibiotics negative cultures so far --Leukocytosis; secondary to pneumonia,Trending down --Mild elevation of d-dimer's, CT chest negative for PE, lower extremity venous Doppler negative for DVT --Morbid obesity;, Counseling done, diet modification exercise as tolerated and weight reduction when medically stable, patient may benefit outpatient evaluation by bariatric surgical team for weight reduction program when medically stable --Possible obstructive sleep apnea; CPAP at night, May need outpatient sleep studies --DVT prophylaxis with Lovenox Ambulate as tolerated, possible discharge tomorrow if stable Plan of care discussed with the patient and her nurse History Interval history: Patient feels slightly better, complains of insomnia Saturating well on room air Productive cough significantly improved, no new episodes of hemoptysis Alert awake oriented 3 not in acute distress Hospitalist Physical - Constitutional Vitals: Temp Pulse Resp BP Pulse Ox 97.8 F 87 20 107/61 99 08/23/16 23:00 08/23/16 23:00 08/23/16 23:00 08/23/16 23:00 08/24/16 09:07 General appearance: Present: no acute distress, well-nourished, obese (morbidly obese) - EENT Eyes: Present: PERRL, EOM intact - Neck Neck: Present: supple, normal ROM - Respiratory Respiratory effort: normal Respiratory: bilateral: diminished, rhonchi (occasional), negative: rales, wheezing - Cardiovascular Rhythm: regular Heart Sounds: Present: S1 & S2 - Extremities Extremities: no ischemia, No edema - Abdominal General gastrointestinal: soft, non-tender, non-distended, normal bowel sounds - Integumentary Integumentary: Present: clear, warm - Psychiatric Psychiatric: appropriate mood/affect, cooperative - Neurologic Neurologic: CNII-XII intact, moves all extremities Results - Labs CBC & Chem 7: 08/24/16 04:58 08/24/16 04:58 Labs: Laboratory Last Values WBC 6.8 K/mm3 (4.5-11.0) 08/24/16 04:58 RBC 4.15 M/mm3 (3.65-5.03) 08/24/16 04:58 Hgb 11.5 gm/dl (10.1-14.3) 08/24/16 04:58 Hct 35.8 % (30.3-42.9) 08/24/16 04:58 MCV 86 fl (79-97) 08/24/16 04:58 MCH 28 pg (28-32) 08/24/16 04:58 MCHC 32 % (30-34) 08/24/16 04:58 RDW 15.9 % (13.2-15.2) H 08/24/16 04:58 Plt Count 301 K/mm3 (140-440) 08/24/16 04:58 Lymph % (Auto) 34.0 % (13.4-35.0) 08/24/16 04:58 [place] % (Auto) 7.5 % (0.0-7.3) H 08/24/16 04:58 Eos % (Auto) 2.5 % (0.0-4.3) 08/24/16 04:58 Baso % (Auto) 0.6 % (0.0-1.8) 08/24/16 04:58 Lymph # 2.3 K/mm3 (1.2-5.4) 08/24/16 04:58 [place] # 0.5 K/mm3 (0.0-0.8) 08/24/16 04:58 Eos # 0.2 K/mm3 (0.0-0.4) 08/24/16 04:58 Baso # 0.0 K/mm3 (0.0-0.1) 08/24/16 04:58 Seg Neutrophils % 55.4 % (40.0-70.0) 08/24/16 04:58 Seg Neutrophils # 3.8 K/mm3 (1.8-7.7) 08/24/16 04:58 PT 12.9 Sec. (12.2-14.9) 08/22/16 16:43 INR 0.93 (0.87-1.13) 08/22/16 16:43 APTT 30.3 Sec. (24.2-36.6) 08/22/16 16:43 D-Dimer 329.71 ng/mlDDU (0-234) H 08/22/16 12:57 POC ABG pH 7.421 (7.35-7.45) 08/20/16 13:04 POC ABG pCO2 37.5 (35-45) 08/20/16 13:04 POC ABG pO2 95 (80-105) 08/20/16 13:04 POC ABG HCO3 24.3 08/20/16 13:04 POC ABG Total CO2 25 08/20/16 13:04 POC ABG O2 Sat 98 08/20/16 13:04 POC ABG Base Excess 0 08/20/16 13:04 FiO2 28 % 08/20/16 13:04 Sodium 137 mmol/L (137-145) 08/24/16 04:58 Potassium 4.6 mmol/L (3.6-5.0) D 08/24/16 04:58 Chloride 94.9 mmol/L (98-107) L 08/24/16 04:58 Carbon Dioxide 30 mmol/L (22-30) 08/24/16 04:58 Anion Gap 17 mmol/L 08/24/16 04:58 BUN 13 mg/dL (7-17) 08/24/16 04:58 Creatinine 1.0 mg/dL (0.7-1.2) 08/24/16 04:58 Estimated GFR > 60 ml/min 08/24/16 04:58 BUN/Creatinine Ratio 13.00 % 08/24/16 04:58 Glucose 119 mg/dL (65-100) H 08/24/16 04:58 Lactic Acid 1.70 mmol/L (0.7-2.0) 08/20/16 10:45 Calcium 9.0 mg/dL (8.4-10.2) 08/24/16 04:58 Magnesium 2.10 mg/dL (1.7-2.3) 08/20/16 11:44 Total Bilirubin 0.20 mg/dL (0.1-1.2) 08/20/16 11:44 Direct Bilirubin < 0.2 mg/dL (0-0.2) 08/20/16 11:44 AST 16 units/L (5-40) 08/20/16 11:44 ALT 20 units/L (7-56) 08/20/16 11:44 Alkaline Phosphatase 56 units/L (35-129) 08/20/16 11:44 Troponin T < 0.010 ng/mL (0.00-0.029) 08/20/16 11:44 NT-Pro-B Natriuret Pep 93.27 pg/mL (0-450) 08/22/16 16:43 Total Protein 7.4 g/dL (6.3-8.2) 08/20/16 11:44 Albumin 3.6 g/dL (3.9-5) L 08/20/16 11:44 Albumin/Globulin Ratio 0.9 % 08/20/16 11:44 Urine Color Yellow (Yellow) 08/20/16 12:33 Urine Turbidity Clear (Clear) 08/20/16 12:33 Urine pH 5.0 (5.0-7.0) 08/20/16 12:33 Ur Specific [place] 1.016 (1.003-1.030) 08/20/16 12:33 Urine Protein <15 mg/dl mg/dL (Negative) 08/20/16 12:33 Urine Glucose (UA) Neg mg/dL (Negative) 08/20/16 12:33 Urine Ketones Neg mg/dL (Negative) 08/20/16 12:33 Urine Blood Mod (Negative) 08/20/16 12:33 Urine Nitrite Neg (Negative) 08/20/16 12:33 Urine Bilirubin Neg (Negative) 08/20/16 12:33 Urine Urobilinogen < 2.0 mg/dL (<2.0) 08/20/16 12:33 Ur Leukocyte Esterase Neg (Negative) 08/20/16 12:33 Urine WBC (Auto) 2.0 /HPF (0.0-6.0) 08/20/16 12:33 Urine RBC (Auto) 3.0 /HPF (0.0-6.0) 08/20/16 12:33 U Epithel Cells (Auto) < 1.0 /HPF (0-13.0) 08/20/16 12:33 Blood Type AB POSITIVE 08/20/16 16:18 Antibody Screen TNR 08/20/16 16:18 BAKARI Antibody Screen Negative 08/20/16 16:18
--- NOTE | 2016-08-24 12:42 | Vascular Lab Report ---
LOWER EXTREMITY VENOUS DUPLEX: REASON FOR EXAM: Elevated d-dimer. COMMENTS ON THE RIGHT: All veins visualized are freely compressible without evidence of internal echogenicity. Flow is spontaneous and phasic throughout. COMMENTS ON THE LEFT: All veins visualized are freely compressible without evidence of internal echogenicity. Flow is spontaneous and phasic throughout. IMPRESSION: No evidence of acute or chronic deep venous thrombosis in either lower extremity.
[2016-08-24] MEDS: ZITHROMAX 500 MG in NACL 0.9% 250ML 250 ML IV SCH (13:43)
[2016-08-24] MEDS: LOVENOX SUB-Q SCH (22:12)
[2016-08-25] MEDS: AMBIEN PO PRN ×2 (00:30→22:54)
[2016-08-25] MEDS: BABY ASPIRIN PO SCH (09:10)
[2016-08-25] MEDS: ROCEPHIN/NS 1 GM/50 ML 1 GM/50 ML BAG IV SCH (09:11)
[2016-08-25] MEDS: ZITHROMAX 500 MG in NACL 0.9% 250ML 250 ML IV SCH (13:09)
--- NOTE | 2016-08-25 19:48 | Progress Note ---
Assessment and Plan Assessment and plan: --Bilateral atypical pneumonia with hemoptysis Hemoptysis resolved ,Symptoms significantly improved , cultures negative to date , continue IV antibiotics, Evaluate for home oxygen nebulizers as needed,Tapering dose of prednisone for pleuritic chest pain , --Acute renal failure; secondary to vasomotor nephropathy, resolved --Sepsis secondary to pneumonia ,Continue IV antibiotics negative cultures so far --Leukocytosis; secondary to pneumonia, resolved --Mild elevation of d-dimer's, CT chest negative for PE, lower extremity venous Doppler negative for DVT --Morbid obesity;, Counseling done, diet modification exercise as tolerated and weight reduction when medically stable, patient may benefit outpatient evaluation by bariatric surgical team for weight reduction program when medically stable --Possible obstructive sleep apnea; CPAP at night, May need outpatient sleep studies --DVT prophylaxis with Lovenox Ambulate as tolerated, possible discharge tomorrow if stable DC home tomorrow on oral antibiotics if stable Plan of care discussed with the patient, family member and the nurse History Interval history: Patient seen and evaluated medical records reviewed Patient feels slightly better, able to ambulate Denies any chest pain or shortness of breath, mild cough, no hemoptysis Alert awake oriented 3 not in acute distress, vital signs reviewed Hospitalist Physical - Constitutional Vitals: Temp Pulse Resp BP Pulse Ox 98.1 F 94 H 20 142/92 95 08/25/16 16:11 08/25/16 16:11 08/25/16 16:11 08/25/16 16:11 08/25/16 08:27 General appearance: Present: no acute distress, well-nourished, obese (morbidly obese) - EENT Eyes: Present: PERRL, EOM intact - Neck Neck: Present: supple, normal ROM - Respiratory Respiratory effort: normal Respiratory: bilateral: diminished, rhonchi (occasional), negative: rales, wheezing - Cardiovascular Rhythm: regular Heart Sounds: Present: S1 & S2 - Extremities Extremities: no ischemia, No edema - Abdominal General gastrointestinal: soft, non-tender, non-distended, normal bowel sounds - Integumentary Integumentary: Present: clear, warm - Psychiatric Psychiatric: appropriate mood/affect, cooperative - Neurologic Neurologic: CNII-XII intact, moves all extremities Results - Labs CBC & Chem 7: 08/24/16 04:58 08/24/16 04:58 Labs: Laboratory Last Values WBC 6.8 K/mm3 (4.5-11.0) 08/24/16 04:58 RBC 4.15 M/mm3 (3.65-5.03) 08/24/16 04:58 Hgb 11.5 gm/dl (10.1-14.3) 08/24/16 04:58 Hct 35.8 % (30.3-42.9) 08/24/16 04:58 MCV 86 fl (79-97) 08/24/16 04:58 MCH 28 pg (28-32) 08/24/16 04:58 MCHC 32 % (30-34) 08/24/16 04:58 RDW 15.9 % (13.2-15.2) H 08/24/16 04:58 Plt Count 301 K/mm3 (140-440) 08/24/16 04:58 Lymph % (Auto) 34.0 % (13.4-35.0) 08/24/16 04:58 [place] % (Auto) 7.5 % (0.0-7.3) H 08/24/16 04:58 Eos % (Auto) 2.5 % (0.0-4.3) 08/24/16 04:58 Baso % (Auto) 0.6 % (0.0-1.8) 08/24/16 04:58 Lymph # 2.3 K/mm3 (1.2-5.4) 08/24/16 04:58 [place] # 0.5 K/mm3 (0.0-0.8) 08/24/16 04:58 Eos # 0.2 K/mm3 (0.0-0.4) 08/24/16 04:58 Baso # 0.0 K/mm3 (0.0-0.1) 08/24/16 04:58 Seg Neutrophils % 55.4 % (40.0-70.0) 08/24/16 04:58 Seg Neutrophils # 3.8 K/mm3 (1.8-7.7) 08/24/16 04:58 PT 12.9 Sec. (12.2-14.9) 08/22/16 16:43 INR 0.93 (0.87-1.13) 08/22/16 16:43 APTT 30.3 Sec. (24.2-36.6) 08/22/16 16:43 D-Dimer 329.71 ng/mlDDU (0-234) H 08/22/16 12:57 POC ABG pH 7.421 (7.35-7.45) 08/20/16 13:04 POC ABG pCO2 37.5 (35-45) 08/20/16 13:04 POC ABG pO2 95 (80-105) 08/20/16 13:04 POC ABG HCO3 24.3 08/20/16 13:04 POC ABG Total CO2 25 08/20/16 13:04 POC ABG O2 Sat 98 08/20/16 13:04 POC ABG Base Excess 0 08/20/16 13:04 FiO2 28 % 08/20/16 13:04 Sodium 137 mmol/L (137-145) 08/24/16 04:58 Potassium 4.6 mmol/L (3.6-5.0) D 08/24/16 04:58 Chloride 94.9 mmol/L (98-107) L 08/24/16 04:58 Carbon Dioxide 30 mmol/L (22-30) 08/24/16 04:58 Anion Gap 17 mmol/L 08/24/16 04:58 BUN 13 mg/dL (7-17) 08/24/16 04:58 Creatinine 1.0 mg/dL (0.7-1.2) 08/24/16 04:58 Estimated GFR > 60 ml/min 08/24/16 04:58 BUN/Creatinine Ratio 13.00 % 08/24/16 04:58 Glucose 119 mg/dL (65-100) H 08/24/16 04:58 Lactic Acid 1.70 mmol/L (0.7-2.0) 08/20/16 10:45 Calcium 9.0 mg/dL (8.4-10.2) 08/24/16 04:58 Magnesium 2.10 mg/dL (1.7-2.3) 08/20/16 11:44 Total Bilirubin 0.20 mg/dL (0.1-1.2) 08/20/16 11:44 Direct Bilirubin < 0.2 mg/dL (0-0.2) 08/20/16 11:44 AST 16 units/L (5-40) 08/20/16 11:44 ALT 20 units/L (7-56) 08/20/16 11:44 Alkaline Phosphatase 56 units/L (35-129) 08/20/16 11:44 Troponin T < 0.010 ng/mL (0.00-0.029) 08/20/16 11:44 NT-Pro-B Natriuret Pep 93.27 pg/mL (0-450) 08/22/16 16:43 Total Protein 7.4 g/dL (6.3-8.2) 08/20/16 11:44 Albumin 3.6 g/dL (3.9-5) L 08/20/16 11:44 Albumin/Globulin Ratio 0.9 % 08/20/16 11:44 Urine Color Yellow (Yellow) 08/20/16 12:33 Urine Turbidity Clear (Clear) 08/20/16 12:33 Urine pH 5.0 (5.0-7.0) 08/20/16 12:33 Ur Specific [place] 1.016 (1.003-1.030) 08/20/16 12:33 Urine Protein <15 mg/dl mg/dL (Negative) 08/20/16 12:33 Urine Glucose (UA) Neg mg/dL (Negative) 08/20/16 12:33 Urine Ketones Neg mg/dL (Negative) 08/20/16 12:33 Urine Blood Mod (Negative) 08/20/16 12:33 Urine Nitrite Neg (Negative) 08/20/16 12:33 Urine Bilirubin Neg (Negative) 08/20/16 12:33 Urine Urobilinogen < 2.0 mg/dL (<2.0) 08/20/16 12:33 Ur Leukocyte Esterase Neg (Negative) 08/20/16 12:33 Urine WBC (Auto) 2.0 /HPF (0.0-6.0) 08/20/16 12:33 Urine RBC (Auto) 3.0 /HPF (0.0-6.0) 08/20/16 12:33 U Epithel Cells (Auto) < 1.0 /HPF (0-13.0) 08/20/16 12:33 Blood Type AB POSITIVE 08/20/16 16:18 Antibody Screen TNR 08/20/16 16:18 BAKARI Antibody Screen Negative 08/20/16 16:18
[2016-08-25] MEDS: LOVENOX SUB-Q SCH (21:37)
--- NOTE | 2016-08-26 08:09 | Progress Note ---
Assessment and Plan 41 y/o female, obese admitted with pneumonia, now with hemoptysis (blood tinged sputum), most likely secondary to improved pneumonia. 1. No objection to discharge 2. Prednisone 20 for 5 more days then stop. NO taper needed 3. Abx for a total of 8 days including what she had here in the hospital 4. Can follow up in the office in 7-10 days. Subjective Date of service: 08/26/16 Interval history: No acute events. Overall better. Possible home today. Objective Vital Signs - 12hr 08/25/16 23:00 Temperature 98.0 F Pulse Rate [ 84 Left] Pulse Rate [ 84 Right Radial] Respiratory 20 Rate Blood Pressure 131/83 [Left Arm] O2 Sat by Pulse 96 Oximetry Constitutional: no acute distress, alert, other (morbidly obese) Eyes: non-icteric ENT: oropharynx dry Neck: supple, no lymphadenopathy Effort: normal Ascultation: Bilateral: clear, diminished breath sounds Percussion: Bilateral: not dull Tactile fremitus: Bilateral: normal Cardiovascular: regular rate and rhythm Gastrointestinal: normoactive bowel sounds Integumentary: normal Extremities: no edema, pink and warm, pulses normal Neurologic: normal mental status, non-focal exam Psychiatric: other (flat affect) CBC and BMP: 08/24/16 04:58 08/24/16 04:58 ABG, PT/INR, D-dimer: ABG POC ABG pH 7.421 (7.35-7.45) 08/20/16 13:04 POC ABG pCO2 37.5 (35-45) 08/20/16 13:04 POC ABG pO2 95 (80-105) 08/20/16 13:04 POC ABG HCO3 24.3 08/20/16 13:04 POC ABG Total CO2 25 08/20/16 13:04 POC ABG O2 Sat 98 08/20/16 13:04 PT/INR, D-dimer PT 12.9 Sec. (12.2-14.9) 08/22/16 16:43 INR 0.93 (0.87-1.13) 08/22/16 16:43 D-Dimer 329.71 ng/mlDDU (0-234) H 08/22/16 12:57 Abnormal lab findings: Abnormal Labs 08/21/16 08/22/16 08/22/16 04:29 12:57 12:57 WBC 14.1 H RDW 16.2 H [place] % (Auto) [place] # 1.0 H Seg Neutrophils % 74.1 H Seg Neutrophils # 10.5 H D-Dimer 329.71 H Sodium 131 L D Chloride 92.1 L Carbon Dioxide 31 H Glucose 158 H 08/24/16 08/24/16 04:58 04:58 WBC RDW 15.9 H [place] % (Auto) 7.5 H [place] # Seg Neutrophils % Seg Neutrophils # D-Dimer Sodium Chloride 94.9 L Carbon Dioxide Glucose 119 H
--- NOTE | 2016-08-26 08:10 | Discharge Summary ---
Providers - Providers Date of Admission: 08/20/16 12:24 Date of discharge: 08/26/16 Attending physician: XIOMARA BARCENAS 08/22/16 14:19 Consult to Physician [CONS] Routine Consulting Provider: ROOSEVELT PADILLA Reason For Exam: hemotysis/atypical pneumonia on CT chest Place consult to:: coal gasification technician Notified:: office Phone number called:: Was contact made?: Yes If yes, spoke with:: dr. padilla Time called:: 16:03 Primary care physician: SWISS MACHINIST Hospitalization Reason for admission: worsening shortness of breath and productive cough Condition: Stable Pertinent studies: Chest x-ray; normal study Chest CT without contrast; perihilar infiltrates are seen in the suspicious for atypical pneumonia, 1.2 cm nodules in the left lobe of the thyroid gland CT angiogram of the chest; improving perihilar infiltrates likely due to atypical pneumonia No large PE noted Lower extremity venous Doppler; no DVT Hospital course: 41-year-old morbidly obese female patient with multiple medical problems was admitted through emergency room with worsening shortness of breath and productive cough of 5 days duration, Patient was admitted to the hospital extensively evaluated and noted to have atypical bilateral pneumonia, symptomatically managed with empiric antibiotic oxygen nebulizers, also had elevated D dimers In view of multiple risk factors, CT angiogram of the chest was negative for PE , lower extremity venous Doppler negative for DVT Patient was evaluated by a auto camp attendant medications were optimized, Symptoms significantly improved Patient counseled diet modification and exercise as tolerated and weight reduction when medically stable Day of discharge patient was comfortable no new complaints, vital signs are stable, room air O2 sats are 95-96% no indication for home oxygen Patient advised outpatient sleep studies for possible BiPAP at night to rule out obstructive sleep apnea The day of discharge patient is comfortable, vital signs stable, hemodynamically and clinically stable for discharge and follow up with auto camp attendant and primary care physician per schedule Discharge diagnosis: Bilateral atypical pneumonia with hemoptysis Acute renal failure improved Sepsis secondary to pneumonia community-acquired Leukocytosis Elevation of d-dimer is negative. DVT Morbid obesity Positives obstructive sleep apnea Disposition: TO HOME OR SELFCARE Time spent for discharge: 33 min Core Measure Documentation - Palliative Care Palliative Care/ Comfort Measures: Not Applicable - Core Measures Any of the following diagnoses?: none Exam - Constitutional Vitals: Temp Pulse Resp BP Pulse Ox 98.0 F 84 20 131/83 96 08/25/16 23:00 08/25/16 23:00 08/25/16 23:00 08/25/16 23:00 08/25/16 23:00 General appearance: Present: no acute distress, well-nourished - EENT Eyes: Present: PERRL, EOM intact Plan Activity: no restrictions Diet: low salt Special Instructions: other (dietary modification and exercise as tolerated) Additional Instructions: Need outpatient sleep study at auto camp attendant office. Outpatient Bariatric surgical evaluation for wt reduction program, when medically stable Follow up with: PRIMARY CARE, [Primary Care Provider] - 3-5 Days ROOSEVELT PADILLA MD [Staff Physician] - 7 Days Prescriptions: Benzonatate [Tessalon Perles] 100 mg PO Q8HR #15 capsule Levofloxacin [Levaquin TAB] 500 mg PO DAILY #5 tablet oxyCODONE /ACETAMINOPHEN [Percocet 5/325 mg] 1 tab PO QHS PRN #7 tablet PRN Reason: Pain, Moderate (4-6) predniSONE [Deltasone] 10 mg PO QDAY #10 tablet
[2016-08-26] MEDS ORDERED: DELTASONE PO SCH (10:00)
[2016-08-26] MEDS ORDERED: ZITHROMAX PO SCH (10:00)
[2016-08-26 10:11] VITALS: BP 119/81
[2016-08-26] MEDS: ROCEPHIN/NS 1 GM/50 ML 1 GM/50 ML BAG IV SCH (10:27)
[2016-08-26] MEDS: BABY ASPIRIN PO SCH (10:28)
== END 2016-08-26 14:50 | disposition home or self-care (01) | DRG 871 ==
LOC: ED 09:55 → 3A 12:24
PROVIDERS: ADMIT Internal Medicine; ATTEND Internal Medicine
PROC: 5A09557 Assistance with Respiratory Ventilation, Greater than 96 Consecutive Hours, Continuous Positive Airway Pressure (ICD-10-PCS; principal; 2016-08-20)
PROC: 4A033R1 Measurement of Arterial Saturation, Peripheral, Percutaneous Approach (ICD-10-PCS; 2016-08-20)
DX: A41.9 Sepsis, unspecified organism (principal); J18.1 Lobar pneumonia, unspecified organism; N17.0 Acute kidney failure with tubular necrosis; R04.2 Hemoptysis; J45.909 Unspecified asthma, uncomplicated; G47.33 Obstructive sleep apnea (adult) (pediatric); Z68.34 Body mass index [BMI] 34.0-34.9, adult; Z82.49 Family history of ischemic heart disease and other diseases of the circulatory system; E66.01 Morbid (severe) obesity due to excess calories; Z71.3 Dietary counseling and surveillance; Z71.89 Other specified counseling
CPT/HCPCS: 36415; 36600; 71010; 71250; 71275; 80048; 80074; 81001; 82140; 82803; 83735; 83880; 84484; 85014; 85018; 85025; 85379; 85610; 85730; 86850; 86900; 86901; 87040; 87086; 93005; 93010; 93970; 94660; 94760; 96365; 99285; J0456; J0696; J1650; J1940; J1956; J2920; J3370; J7030; J7040; J7050; J7512; Q9967